=== PATIENT | male | born 1990 | race Hispanic/Latino ===

== ENCOUNTER 2023-02-18 16:19 | Emergency (ER) | payer OTHER ==
[~2023-02-18] VITALS: Ht 182.9 cm; Wt 200.0 kg
[2023-02-18] MEDS ORDERED: SULF1TAB42 PO (18:51)
[2023-02-18] MEDS ORDERED: CEPH500B PO (18:51)
[2023-02-18 19:11] VITALS: BP 152/54
== END 2023-02-18 19:16 | disposition home or self-care (01) ==
LOC: EDH 16:19
DX: L02.31 Cutaneous abscess of buttock (principal); E11.9 Type 2 diabetes mellitus without complications

== ENCOUNTER 2023-12-14 14:45 | Emergency (ER) | payer OTHER ==
[~2023-12-14] VITALS: Ht 182.9 cm; Wt 195.0 kg
[~2023-12-14 14:45] MED LIST: CEPH500B PO; SULF1TAB42 PO
[2023-12-14 15:40] LABS: BASOPHILS # (AUTO) 0.06 K/uL (0.00-0.20); BASOPHILS % (AUTO) 0.8 % (0.0-5.0); EOSINOPHILS # (AUTO) 0.11 K/uL (0.00-0.70); EOSINOPHILS % (AUTO) 1.4 % (0.0-8.0); HEMATOCRIT 43.3 % (42-54); IMMATURE GRANULOCYTE ABSOLUTE 0.01 K/uL (0-1); LYMPHOCYTES # (AUTO) 2.1 K/uL (1.0-4.8); LYMPHOCYTES % (AUTO) 26.4 % (21.0-51.0); MEAN CORPUSCULAR HEMOGLOBIN 31.5 pg (27.0-33.0); MEAN CORPUSCULAR HGB CONC 34.4 g/dL (32.0-36.0); MEAN CORPUSCULAR VOLUME 91.5 fL (79-99); MONOCYTES # (AUTO) 0.5 K/uL (0.1-1.0); MONOCYTES % (AUTO) 6.4 % (3.0-13.0); NEUTROPHILS # (AUTO) 5.1 K/uL (1.8-7.7); NEUTROPHILS % (AUTO) 64.9 % (40.0-77.0); PLATELET COUNT (AUTO) 239 K/uL (130-400); RED BLOOD CELL COUNT(AUTO) 4.73 MIL/uL (4.50-6.20); WHITE BLOOD COUNT (AUTO) 7.8 K/uL (4.8-10.8)
[2023-12-14 15:51] LABS: POTASSIUM 3.8 mmol/L (3.5-5.1)
[2023-12-14 16:19] LABS: ALBUMIN 3.6 g/dL (3.5-5.0); BILIRUBIN,TOTAL 0.4 mg/dL (0.2-1.0); TOTAL PROTEIN, SERUM 8.1 g/dL (6.0-8.3)
[2023-12-14] MEDS ORDERED: LEVO-70 PO (18:04)
[2023-12-14] MEDS ORDERED: BENZ-39 PO (18:04)
[2023-12-14] MEDS ORDERED: ALBU18HF7 IH (18:04)
[2023-12-14 19:19] VITALS: BP 168/100; PULSE 96; RESP 18; O2SAT 99
== END 2023-12-14 19:21 | disposition home or self-care (01) ==
LOC: EDH 14:45
DX: R07.89 Other chest pain (principal); J20.9 Acute bronchitis, unspecified; F12.90 Cannabis use, unspecified, uncomplicated; E11.9 Type 2 diabetes mellitus without complications; E66.01 Morbid (severe) obesity due to excess calories; Z68.43 Body mass index [BMI] 50.0-59.9, adult
CPT/HCPCS: 36415; 71045; 80053; 84484; 85025; 93005

== ENCOUNTER 2024-08-04 13:02 | Emergency (ER) | payer OTHER ==
[~2024-08-04] VITALS: Ht 195.6 cm; Wt 189.6 kg
[~2024-08-04 13:02] MED LIST changes: +ALBU18HF7 IH; +BENZ-39 PO; +IBUP-2077 PO; +LEVO-70 PO
[2024-08-04] MEDS: dexaMETHasone SOD PHOSPHATE 4 MG/ML 1ML VIAL IM ONE (13:45)
[2024-08-04] MEDS: ALBUTEROL 0.083% 2.5 MG/3 ML INH IH ONE (13:56)
[2024-08-04 13:58] VITALS: PULSE 101; RESP 18
[2024-08-04] MEDS ORDERED: ALBUHFA IH (15:35)
[2024-08-04 15:40] VITALS: BP 137/87; PULSE 92; RESP 18; TEMP 98.1; O2SAT 99
== END 2024-08-04 15:46 | disposition home or self-care (01) ==
LOC: EDH 13:02
DX: R06.09 Other forms of dyspnea (principal); Z20.822 Contact with and (suspected) exposure to COVID-19; E66.01 Morbid (severe) obesity due to excess calories; E11.9 Type 2 diabetes mellitus without complications; F17.200 Nicotine dependence, unspecified, uncomplicated; Z79.899 Other long term (current) drug therapy; Z68.42 Body mass index [BMI] 45.0-49.9, adult
CPT/HCPCS: 99284; 71045; 87426; 96372; 94640; J1100